=== PATIENT | male | born 1955 | race Caucasian/White ===

== ENCOUNTER → 2016-12-05 | Outpatient (CLI) | payer OTHER, MEDICARE ==
--- NOTE | 2016-12-06 08:25 | CT ---
EXAM DESCRIPTION: Lumbar Spine CLINICAL HISTORY: 61 years, Male, degenerative lumbar disc disease, lumbar radiculopathy, prior surgery COMPARISON: None TECHNIQUE: Lumbar CT with thin-section axial imaging with reconstructed MPR images reviewed as well. This exam was performed according to our departmental dose-optimization program, which includes automated exposure control, adjustment of the mA and/or kV according to patient size and/or use of iterative reconstruction technique. FINDINGS: Excellent opacification of the subarachnoid space is achieved in this myelogram patient. T11-12: The disc is moderately narrowed and there is a vacuum disc phenomenon observed. Broad partially calcified 2 to 4 mm disc bulge is present exaggerated posterolaterally to the left. Significant posterior ligament buckling these changes result in a mild multifactorial spinal stenosis with the canal measuring about 9 to 10 mm. However, there is severe bony stenosis of both T11 foramina. T12-L1: The disc is mildly narrowed. There is no significant disc bulging. No significant facet changes observed. No stenosis. L1-2: Minor disc narrowing and posterior disc bulging. Early hypertrophic facet arthropathy. Moderate bony stenosis of both L1 foramina. L2-3: The disc is mildly narrowed. Vacuum phenomenon is present. Minimal annular bulging is present. Early hypertrophic facet arthropathy is noted. No stenosis or impingement. L3-4: Minor disc narrowing and posterior disc bulging. Severe bilateral facet and ligament hypertrophy. These changes combine to produce moderate multifactorial spinal stenosis with the AP diameter of the canal measuring 7 to 8 mm. There is posterior fusion at this level. L4-5: The disc space is moderately narrowed and I believe there is fusion across the disc space. There is posterior fusion. There has been laminectomy in the distant past. There is no stenosis or impingement. L5-S1: There is fusion across the disc and there is posterior fusion. There is no stenosis or impingement. IMPRESSION: 1. Diffuse thoracic and lumbar spondylosis with multifactorial spinal stenosis T11-12 and L3-4 2. Significant bony stenosis of T11 and L1 neural foramina 3. Solid posterior fusion from L3 to S1 Electronically signed by: Celestine Chaves MD 12/06/2016 8:25 AM CDT
--- NOTE | 2016-12-06 08:37 | CT ---
EXAM DESCRIPTION: Thoracic Spine CLINICAL HISTORY: Thoracic pain and lower extremity radiculopathy COMPARISON: None Available. TECHNIQUE: Thoracic CT is performed with thin-section axial imaging. MPRs are created and reviewed as well. This exam was performed according to our departmental dose-optimization program, which includes automated exposure control, adjustment of the mA and/or kV according to patient size and/or use of iterative reconstruction technique. FINDINGS: There is adequate opacification of the subarachnoid space of the thoracic spine in this post myelogram patient. Advanced disc disease is present at T11-12 as described on the lumbar report. There is a mild multifactorial stenosis of the canal at T11-12 and there is significant bilateral bony stenosis of the neural foramina at this level. Multilevel thoracic osteophytosis is present. Confluent osteophytes are present from T3 all the way down to T11 basically fusing that segment of the thoracic spine. The cord is unremarkable. IMPRESSION: This patient has spontaneous fusion of the thoracic spine from T3 down to T11 and obviously has hypermobility at the T11-12 segment which shows advanced disc disease and posterior ligament buckling producing spinal and foraminal stenosis. Electronically signed by: Celestine Chaves MD 12/06/2016 8:36 AM CDT
--- NOTE | 2016-12-06 08:49 | CT ---
EXAM DESCRIPTION: Cervical Spine CLINICAL HISTORY: CERVICAL PAIN COMPARISON: None Available. TECHNIQUE: Cervical CT is performed with thin-section axial imaging. MPRs are created and reviewed as well. This exam was performed according to our departmental dose-optimization program, which includes automated exposure control, adjustment of the mA and/or kV according to patient size and/or use of iterative reconstruction technique. FINDINGS: There is adequate opacification of subarachnoid space in this post myelogram patient including good visualization of the upper thoracic levels. There has been anterior cervical discectomy and fusion at C5-6 and C6-7 and those levels are solidly fused. There is calcification of the posterior longitudinal ligament at C2, C3, C4, C5, and C6. This ossification of the PLL produces spinal stenosis at multiple levels with the canal measuring 8.4 mm at C2-3, 7.3 mm at C3-4, 7.5 mm at C4-5, 8 mm at C5-6 and C6-7. Facet and uncinate eight and disc changes at C3-4 produce severe left C4 neural foraminal stenosis. Severe arthritic changes of the atlantoaxial joint noted. IMPRESSION: Advanced cervical spondylosis with calcification of the PLL producing significant spinal stenosis at C2-3, C3-4, C4-5, and C5-6 with severe left C4 foraminal stenosis also identified. Electronically signed by: Celestine Chaves MD 12/06/2016 8:50 AM CDT
--- NOTE | 2016-12-06 09:46 | RAD ---
EXAM DESCRIPTION: Lumbar myelogram CLINICAL HISTORY: Lower extremity radiculopathy. Spinal stenosis. SEDATION: None PROCEDURE: This study was performed in the fluoroscopy laboratory with the patient in the prone position. Sterile prep and drape were performed. 1% lidocaine was administered for local anesthesia. Under direct fluoroscopic visualization, a 25 gauge spinal needle was directed down to the subarachnoid space at the L2 level. 10 mL of Omnipaque 300 were injected. Four spot radiographs one overhead lateral radiograph were obtained and are kept in the patient's medical record. Fluoroscopy time less than 1 min. FINDINGS: There is overall good alignment of the lumbar spine. There is adequate opacification of the subarachnoid space. Anterior and posterior impression on the thecal sac present at L3-4 consistent with disc and facet/ligament changes produce seen at least moderate multifactorial spinal stenosis. Please see CT report for further details. Cerclage and stimulator wires are present in the posterior elements of the lower lumbar spine. IMPRESSION: 1. Spinal stenosis L3-4. Please see CT report for further details. Electronically signed by: Celestine Chaves MD 12/06/2016 9:46 AM CDT
== END | disposition home or self-care (01) ==
LOC: RAD 08:11
PROVIDERS: ATTEND Nurse Practitioner Family
DX: M54.16 Radiculopathy, lumbar region (principal); M54.12 Radiculopathy, cervical region

== ENCOUNTER → 2018-09-20 | Outpatient (CLI) | payer MEDICARE, OTHER | LOC: LAB.O 08:28 | PROVIDERS: ATTEND Internal Medicine Cardiovascular Disease | DX: E78.00 Pure hypercholesterolemia, unspecified (principal) ==

== ENCOUNTER → 2020-05-30 | Emergency (ER) | payer MEDICARE, OTHER ==
--- NOTE | 2020-05-30 20:11 | ED.PDOC ---
History of Present Illness - General Chief Complaint: General Stated Complaint: Polo Catheter trouble Time Seen by Provider: 05/30/20 19:52 Source: patient Exam Limitations: no limitations Additional Information: The patient is a 65-year-old male , belligerent , male that presents to emergency department with complaints of his displaced bladder. He had prostatic surgery on and had a Polo catheter in place. 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 Currently on antibiotics post prostatic surgery - History of Present Illness Timing/Duration: other - 2 days Quality: mild Radiation: none Activites at Onset: none Prior abdominal problems: none Sexual intercourse history: not active Improving Factors: nothing Worsening Factors: nothing Associated Symptoms: denies symptoms Allergies/Adverse Reactions: Allergies NO KNOWN ALLERGY Allergy (Verified 03/05/16 15:13) Home Medications: Ambulatory Orders Cyclobenzaprine HCl [Flexeril] 10 mg PO Q8HR PRN #20 tab 03/05/16 Melatonin 5-10 mg PO PRN PRN 03/05/16 [place] 5/325 03/05/16 Parafon Forte DSC 03/05/16 Restoril 15 mg PO 03/05/16 Tramadol HCl [Ultram] 50 mg PO Q8HRS PRN #20 tab 03/05/16 fentaNYL PATCH 50 MCG/HR meq TOP 03/05/16 Review of Systems - Review of Systems Constitutional: Denies: chills, fever EENTM: Denies: blurred vision, tearing, ear discharge Respiratory: Denies: cough, short of breath, stridor Cardiology: Denies: chest pain, palpitations, syncope Gastrointestinal/Abdominal: Denies: abdominal pain, diarrhea, nausea Genitourinary: States: other - Displaced Polo catheter Concerns. Denies: hematuria Musculoskeletal: Denies: back pain, gout, muscle pain, muscle stiffness Endocrine: Denies: flushing, intolerance to cold, intolerance to heat, increased thirst, increased urine Hematologic/Lymphatic: Denies: anemia, easy bleeding All other Systems: Reviewed and Negative Past Medical History (General) - Patient Medical History Hx Cardiac Disorders: Yes - Vaccination History Hx Influenza Vaccination: No Hx Pneumococcal Vaccination: No - Social History Hx Tobacco Use: No Hx Alcohol Use: No Hx Substance Use: No Family Medical History - Family History Father Family History: Unknown Physical Exam - Physical Exam General Appearance: Alert, Comfortable Eyes, Ears, Nose, Throat Exam: PERRL/EOMI, normal ENT inspection, pharynx normal Neck: non-tender, full range of motion, supple, normal inspection Cardiovascular/Respiratory: regular rate, rhythm, normal peripheral pulses, no JVD, normal breath sounds Gastrointestinal/Abdominal: normal bowel sounds, non tender, soft Male Genital Exam: normal genitalia, other - Polo catheter in place, for security hops very tight pulling on Polo,safety device putting tration / tension on polo cather. No Hematuria clear yellow urine in Polo bag Progress - Progress Progress: Safety device free moved and adjusted. Polo catheter flushed. Polo catheter currently draining properly. No abdominal pain on examination no pain the patient Reports relief. Discharge the patient home the patient instructed to follow-up with urologist in 1 to 2 days. Patient instructed to return to emergency department immediately if symptoms worsen or recur 05/30/20 20:55 Departure - Departure Clinical Impression: Polo catheter problem Disposition: Discharge to Home or Self Care Condition: Good Departure Forms: ED Discharge - Pt. Copy, Patient Portal Self Enrollment Instructions: How to Care for Your Polo Catheter, Male, Polo Catheter, Male Activity: other - Activity as tolerated Referrals: Vincent Kimbrough MD [Primary Care Provider] - 1-2 Weeks Home Medications: Ambulatory Orders Cyclobenzaprine HCl [Flexeril] 10 mg PO Q8HR PRN #20 tab 03/05/16 Melatonin 5-10 mg PO PRN PRN 03/05/16 [place] 5/325 03/05/16 Parafon Forte DSC 03/05/16 Restoril 15 mg PO 03/05/16 Tramadol HCl [Ultram] 50 mg PO Q8HRS PRN #20 tab 03/05/16 fentaNYL PATCH 50 MCG/HR meq TOP 03/05/16 Additional Instructions: Please continue all current medications as prescribed by your surgeon/urologist. In short follow-up with your urologist office in 1 to 2 days. Return to emergency department symptoms recur or you have any further concerns.
[2020-05-30 21:14] VITALS: BP 130/84; TEMP 98; O2SAT 100
== END | disposition home or self-care (01) ==
LOC: ER 19:47
DX: Z46.6 Encounter for fitting and adjustment of urinary device (principal); I51.9 Heart disease, unspecified; Z98.890 Other specified postprocedural states; Z79.899 Other long term (current) drug therapy